=== PATIENT | male | born 1965 | race Caucasian/White ===

== ENCOUNTER 2017-01-21 20:43 | Emergency (ER) | payer OTHER ==
--- NOTE | 2017-01-21 20:52 | PDOC ---
History of Present Illness - General History Source: Patient, Old Records Exam Limitations: No Limitations - History of Present Illness Initial Comments: The patient is a 51 year old male with no significant past medical history, who presents to the emergency department today for further evaluation of a perirectal abscess for 4 days. The patient states that today he went to [facility] because he feared he had a hemorrhoid. [facility] informed the patient that he had a perirectal abscess and sent him to the emergency department. The patient reports associated pain when sitting down. The patient denies fever, chills, and sweats. The patient denies nausea, vomiting, and diarrhea. The patient denies chest pain, cough, and shortness of breath. PCP: Dr. Josh Pizano [phone] <Noé Lopez - Last Filed: 01/21/17 21:54> <Magdalena Jimenez - Last Filed: 01/25/17 02:02> - General Chief Complaint: Abscess Boil Stated Complaint: PERIRECTAL ABSCESS Time Seen by Provider: 01/21/17 20:45 Past History <Noé Lpoez - Last Filed: 01/21/17 21:54> - Past Medical History Anemia: No Asthma: No Cancer: No Cardiac Disorders: No CVA: No COPD: No CHF: No Dementia: No Diabetes: No GI Disorders: No Disorders: No HTN: No Hypercholesterolemia: No Liver Disease: No Seizures: No Thyroid Disease: No - Surgical History Abdominal Surgery: No Appendectomy: No Cardiac Surgery: No Cholecystectomy: No Lung Surgery: No Neurologic Surgery: No Orthopedic Surgery: No - Psycho/Social/Smoking Cessation Hx Smoking History: Never smoked Have you smoked in the past 12 months: No Hx Alcohol Use: Yes (SOCIALLY) Drug/Substance Use Hx: No Substance Use Type: None Hx Substance Use Treatment: No <Magdalena Jimenez - Last Filed: 01/25/17 02:02> - Past Medical History Allergies/Adverse Reactions: Allergies Allergy/AdvReac Type Severity Reaction Status Date / Time No Known Allergies Allergy Verified 01/21/17 20:50 Home Medications: Ambulatory Orders Clindamycin [Cleocin -] 300 mg PO TID #15 capsule 01/21/17 Review of Systems - Review of Systems Able to Perform ROS?: Yes Comments:: CONSTITUTIONAL: Absent: fever, no chills, no fatigue EYES: Absent: visual changes ENT: Absent: ear pain, no sore throat CARDIOVASCULAR: Absent: chest pain, no palpitations RESPIRATORY: Absent: cough, no SOB GI: Absent: abdominal pain, no nausea, no vomiting, no constipation, no diarrhea GENITOURINARY: Absent: dysuria, no frequency, no hematuria MUSCULOSKELETAL: Absent: back pain, no arthralgia, no myalgia SKIN: Present: Perirectal abscess Absent: rash NEURO: Absent: headache <Noé Lopez - Last Filed: 01/21/17 21:54> *Physical Exam - Vital Signs Last Vital Signs Temp Pulse Resp BP Pulse Ox 98.1 F 65 15 148/88 100 01/21/17 20:44 01/21/17 20:44 01/21/17 20:44 01/21/17 20:44 01/21/17 20:44 - Physical Exam Comments: GENERAL: The patient is awake, alert, and fully oriented, in no acute distress. HEAD: Normal with no signs of trauma. EYES: Pupils equal, round and reactive to light, extraocular movements intact, sclera anicteric, conjunctiva clear with no pallor. ENT: Ears normal, nares patent, oropharynx clear without exudates. Moist mucous membranes. NECK: Normal range of motion, supple without lymphadenopathy, JVD, or masses. LUNGS: Breath sounds equal, clear to auscultation bilaterally. No wheeze/ crackles. HEART: Regular rate and rhythm, normal S1 and S2 without murmur or rub. ABDOMEN: Soft/nontender/nondistended. BS wnl. No guarding or rebound. No palpable masses. No hepatosplenomegaly. BUTTOX: (+) 2 x 3 cm erythematous tender fluctuant mass of left perianal area with no sign of buttox inflammation, tenderness, or erythema. EXTREMITIES: Normal range of motion, no edema. No clubbing or cyanosis. No cords, erythema, or tenderness. NEUROLOGICAL: Cranial nerves II through XII grossly intact. Normal speech, normal gait. PSYCH: Normal mood, normal affect. SKIN: Warm, Dry, normal turgor, no rashes or lesions noted. <Noé Lopez - Last Filed: 01/21/17 21:54> Procedures - Incision and Drainage I&D Site: Left: Perirectal Betadine cleansed: No (Hibiclens/ethanol) Anesthesia: 1% Lidocaine Volume(ml): 2 Blade Size: 11 Attempts: 1 Iodinated Packin/2 in Plain Packing: Yes Complications: none Dressing: Yes (sterile gauze) Progress: Area around abscess cleansed with Hibiclens/ethanol. 2 mL of 1% lidocaine injected into the area for local anesthesia. 1.5 cm incision made with #11 blade. Copious drainage of purulent material resulted. Gentle pressure in the area of the abscess performed to fully drain abscess cavity. Wound irrigated with 50 mL of sterile normal saline. Small amount of half-inch plain packing placed in the wound. Patient tolerated procedure well Wound culture sent for C and S <Magdalena Jimenez - Last Filed: 01/25/17 02:02> Medical Decision Making - Medical Decision Making Documentation has been prepared under my direction and personally reviewed by me in its entirety. I attest that this documented accurately reflects all work, treatment, procedures and medical decision making performed by me. As noted above, this 51-year-old man with out significant past medical history and no previous history of skin abscess requiring drainage or cellulitis, presents with perirectal abscess the last few days. Patient has no previous history of poor wound healing or immunocompromise. He has no previous history of persistent organism colonization or infection. No evidence of systemic infectious process currently.. Exam as noted. Incision and drainage procedure of abscess performed as noted above. Patient will be treated with a small (5 day) course of clindamycin. First dose of 300 mg clindamycin administered here in the emergency room. Remainder of the prescription sent to patient's pharmacy. Packing will be removed within the next 48 hours. The patient and his are planning on leaving for [place] [employer] tomorrow. Patient has been advised that seawater bathing acceptable after packing removed. When patient returns home, should follow-up with his general doctor. If he has any increase in swelling/redness/pain in the area prior to that, he should go to the nearest medical facility <Magdalena Jimenez - Last Filed: 01/25/17 02:02> *DC/Admit/Observation/Transfer - Attestations Scribe Attestion: Documentation prepared by Noé Lopez, acting as medical librarian for Magdalena Jimenez MD. <Noé Lopez - Last Filed: 01/21/17 21:54> <Magdalena Jimenez - Last Filed: 01/25/17 02:02> Diagnosis at time of Disposition: Eli-rectal abscess - Discharge Dispostion Disposition: HOME Condition at time of disposition: Stable - Prescriptions Prescriptions: Clindamycin [Cleocin -] 300 mg PO TID #15 capsule - Referrals Referrals: Josh Pizano [Primary Care Provider] - - Patient Instructions Printed Discharge Instructions: DI for Skin Abscess Additional Instructions: remove packing on Tuesday AM(January 23)if still present let water flow into wound while bathing after packing removed Clindamycin 300mg 3 times a day for 5 days Ibuprofen/Acetaminophen/Naproxen as needed for pain
[2017-01-21 20:58] VITALS: BP 148/88; PULSE 65; TEMP 98.1; BMI 29.0
[2017-01-21] MEDS ORDERED: CLINDAMYCIN HCL 300 MG CAPSULE PO ONE (21:50)
[2017-01-21] MEDS ORDERED: CLINDAMYCIN HCL 150 MG CAPSULE (FP) ONE (21:53)
== END 2017-01-21 22:03 | disposition home or self-care (01) ==
LOC: FER 20:43
PROC: 0D9P00Z Drainage of Rectum with Drainage Device, Open Approach (ICD-10-PCS; principal; 2017-01-21)
DX: K61.1 Rectal abscess (principal)
CPT/HCPCS: 87070; 87076; 87186; 87205; 99281-25

== ENCOUNTER 2023-08-02 04:46 | Day surgery (SDC) | payer OTHER ==
[2023-07-27 13:39] VITALS: BMI 29.0
[2023-08-02 12:31] VITALS: TEMP 96.8
[2023-08-02 13:17] VITALS: BP 130/78; PULSE 62; RESP 18
== END 2023-08-02 13:15 | disposition home or self-care (01) ==
LOC: JASU-ENDO 04:46
PROVIDERS: ATTEND Internal Medicine Gastroenterology
PROC: 0DBN8ZX Excision of Sigmoid Colon, Via Natural or Artificial Opening Endoscopic, Diagnostic (ICD-10-PCS; 2023-08-02)
PROC: 0DB98ZX Excision of Duodenum, Via Natural or Artificial Opening Endoscopic, Diagnostic (ICD-10-PCS; 2023-08-02)
PROC: 0DB68ZX Excision of Stomach, Via Natural or Artificial Opening Endoscopic, Diagnostic (ICD-10-PCS; 2023-08-02)
PROC: 0DB48ZX Excision of Esophagogastric Junction, Via Natural or Artificial Opening Endoscopic, Diagnostic (ICD-10-PCS; 2023-08-02)
PROC: 0DBK8ZX Excision of Ascending Colon, Via Natural or Artificial Opening Endoscopic, Diagnostic (ICD-10-PCS; principal; 2023-08-02 12:00)
DX: D12.2 Benign neoplasm of ascending colon (principal); D12.5 Benign neoplasm of sigmoid colon; K64.8 Other hemorrhoids; K57.30 Diverticulosis of large intestine without perforation or abscess without bleeding; K21.9 Gastro-esophageal reflux disease without esophagitis; K29.00 Acute gastritis without bleeding
CPT/HCPCS: 88305-TC; 88342-TC

== ENCOUNTER 2023-10-21 00:41 | Emergency (ER) | payer OTHER ==
[2023-10-21 00:58] VITALS: BP 132/75; PULSE 67; RESP 18; TEMP 97.9; BMI 29.0
[2023-10-21] MEDS ORDERED: DIPHTH,PERTUSS(ACELL),TET 0.5 ML DISP.SYRIN IM ONE (02:04)
[2023-10-21] MEDS: DIPHTH,PERTUSS(ACELL),TET 0.5 ML DISP.SYRIN IM ONE (02:11)
[2023-10-21] MEDS: ONDANSETRON 4 MG/2 ML VIAL IVPUSH ONE (02:31)
[2023-10-21] MEDS: DEXAMETHASONE 4 MG TABLET (FP) PO ONE ×3 (02:31→03:31)
[2023-10-21] MEDS ORDERED: diphenhydrAMINE HCL 25 MG CAPSULE (FP) PO ONE (02:34)
[2023-10-21] MEDS ORDERED: ONDANSETRON *ODT* 4 MG TABLET ONE (02:34)
[2023-10-21] MEDS ORDERED: DEXAMETHASONE 4 MG TABLET (FP) ONE ×2 (02:35→03:27)
[2023-10-21] MEDS: ONDANSETRON 4 MG TABLET PO ONE (02:38)
[2023-10-21] MEDS: DEXAMETHASONE SOD PHOSPHATE 4 MG/1 ML VIAL IM ONE (02:38)
[2023-10-21] MEDS: diphenhydrAMINE HCL 50 MG CAPSULE PO ONE (02:38)
[2023-10-21] MEDS ORDERED: AMOX TR/POT CLAV 875MG/125MG TABLETS (FP) ONE (03:11)
[2023-10-21] MEDS: AMOX TR/POT CLAV 875MG/125MG TABLETS (FP) PO ONE (03:31)
== END 2023-10-21 04:06 | disposition home or self-care (01) ==
LOC: JER 00:41
PROC: 0HQFXZZ Repair Right Hand Skin, External Approach (ICD-10-PCS; principal; 2023-10-21)
PROC: 3E0234Z Introduction of Serum, Toxoid and Vaccine into Muscle, Percutaneous Approach (ICD-10-PCS; 2023-10-21)
DX: S61.451A Open bite of right hand, initial encounter (principal); R22.31 Localized swelling, mass and lump, right upper limb; W55.01XA Bitten by cat, initial encounter
CPT/HCPCS: 90715